=== PATIENT | female | born 1965 | race Caucasian/White ===

== ENCOUNTER → 2022-02-27 | Outpatient (CLI) | payer OTHER ==
--- NOTE | 2022-02-27 22:28 | BD ---
EXAMINATION TYPE: Axial Bone Density DATE OF EXAM: 02/27/2022 COMPARISON: Prior DEXA bone scan 2014 CLINICAL HISTORY: 56 years year old Female. ICD-10 CODE: Z13.820 OSTEOPOROSIS Height: 65 Weight: 222.5 FRAX RISK QUESTIONS: Alcohol (3 or more units per day): NO Family History (Parent hip fracture): NO Glucocorticoids (More than 3mos): NO History of Fracture in Adulthood: NO Secondary Osteoporosis: 1. Type 1 Diabetes: NO 2. Hyperthyroidism: NO 3. Menopause before 45: NO 4. Malnutrition: NO 5. Chronic liver disease: NO Rheumatoid Arthritis: NO Current Tobacco Use: NO RISK FACTORS HISTORY OF: Hip Fracture (Right/Left): NO Spine Fracture: NO History of Wrist Fracture: NO Surgery to Spine/Hip(right/left)/Wrist (right/left): NO Family History of Osteoporosis: MOM Active: NO Diet low in dairy products/other sources of calcium: YES Postmenopausal woman: YES Take estrogen and/or progesterone medications: NO Lost more than 2 inches in height since high school: NO Frequent falls: NO Poor Health: NO Hyperparathyroidism: NO Adrenal Insufficiency: NO MEDICATIONS: Prednisone or other steroids: NO Thyroid Medications: NO Osteoporosis Medications: NO Additional Medications: MULTI VIT. , FISH OIL, Additional History: EXAM MEASUREMENTS: Bone mineral densitometry was performed using the [employer] System. Bone mineral density as measured about the Lumbar spine is: ----- L1-L4(G/cm2): 1.584 T Score Values are as follows: ----- L1: 2.0 ----- L2: 2.2 ----- L3: 4.5 ----- L4: 4.8 ----- L1-L4: 3.4 Bone mineral density has: DECREASED -0.2% since study of: 09/25/2015 Bone mineral density about the R hip (g/cm2): 1.003 Bone mineral density about the L hip (g/cm2): 1.035 T Score values are as follows: -----R Neck: -0.3 -----L Neck: 0.0 -----R Total: 0.7 -----L Total: 1.4 Bone mineral density has: DECREASED 5.3% since study of: 09/25/2015 FRAX%s: The graph provided illustrates a 5.3% chance for a major osteoporotic fx and a 0.1% chance fo r the hips probability for fx in 10 years time. IMPRESSION: Normal (Values between +1 and -1 indicate normal bone mass). Consider repeating this study in 5 year s or sooner if there is some new clinical indication. NOTE: T-SCORE=SD OF THE YOUNG ADULT MEAN.
--- NOTE | 2022-02-28 11:54 | MM ---
Reason for exam: screening (asymptomatic). Last mammogram was performed 6 years and 5 months ago. History: Patient is postmenopausal. Family history of breast cancer in paternal aunt. Physical Findings: A clinical breast exam by your physician is recommended on an annual basis and results should be correlated with mammographic findings. MG 3D Screening Mammo W/Cad Bilateral CC and MLO view(s) were taken. XCCL view(s) were taken of the right breast. Prior study comparison: September 25, 2015, bilateral MG screening mammo w CAD. The breast tissue is heterogeneously dense. This may lower the sensitivity of mammography. There are benign appearing round, vascular calcifications bilaterally. There is chronic nodularity in the left breast with new round calcifications. There is no discrete abnormality. ASSESSMENT: Benign, BI-RAD 2 RECOMMENDATION: Routine screening mammogram of both breasts in 1 year.
== END | disposition home or self-care (01) ==
LOC: RADMAMWWP 11:48
PROVIDERS: ATTEND Family Medicine
DX: Z12.31 Encounter for screening mammogram for malignant neoplasm of breast (principal); Z13.820 Encounter for screening for osteoporosis; Z78.0 Asymptomatic menopausal state; Z80.3 Family history of malignant neoplasm of breast
CPT/HCPCS: 77063; 77067; 77080

== ENCOUNTER → 2023-11-13 | Outpatient (CLI) | payer OTHER ==
--- NOTE | 2023-11-17 09:39 | MM ---
Reason for Exam: Screening (asymptomatic). Last mammogram was performed 1 year(s) and 9 month(s) ago. Patient History: Menarche at age 12. First Full-Term at age 22. Postmenopausal. Patient has history of breast feeding. Paternal aunt had breast cancer. Mother had breast cancer, age 80. Risk Values: Allison 5 year model risk: 2.7%. NCI Lifetime model risk: 13.9%. Prior Study Comparison: 03/22/2013 Left Diagnostic Mammogram, [facility]. 09/25/2015 Bilateral Screening Mammogram, [facility]. 02/27/2022 Bilateral Screening Mammogram, [facility]. Tissue Density: The breast tissue is heterogeneously dense. This may lower the sensitivity of mammography. Findings: Analyzed By CAD. There is no suspicious group of microcalcifications or new suspicious mass. Benign-appearing calcifications bilaterally. Overall Assessment: Benign, BI-RAD 2 Management: Screening Mammogram of both breasts in [address] [facility] will attempt to contact patient to return for supplemental views and ultrasound if indicated. Patient should continue monthly self-breast exams. A clinical breast exam by your physician is recommended on an annual basis. This exam should not preclude additional follow-up of suspicious palpable abnormalities. Note on Allison scores and lifetime risk: 1. A Allison score greater than 3% is considered moderate risk. If this is the case, consider specialist referral to assess eligibility for a risk reducing agent. 2. If overall lifetime risk for the development of breast cancer is 20% or higher, the patient may qualify for future screening with alternating mammogram and breast MRI. Electronically signed and approved by: Percy Miguel DO
== END | disposition home or self-care (01) ==
LOC: RADMAMWWP 14:17
PROVIDERS: ATTEND Family Medicine
DX: Z12.31 Encounter for screening mammogram for malignant neoplasm of breast (principal); Z78.0 Asymptomatic menopausal state; Z80.3 Family history of malignant neoplasm of breast
CPT/HCPCS: 77067

== ENCOUNTER → 2025-01-19 | Outpatient (CLI) | payer OTHER ==
--- NOTE | 2025-01-20 07:47 | CA ---
Exercise Stress Test Report Name: Dunia Gomes Exam Date: 01/19/2025 11:45 Exam Location: [facility] Ht (in): 66 Wt (lb): 222 BSA: 2.09 Ordering Phys: Kenia Don DO Referring Phys: Sally Cabello Technologist: STEPHANIE QUAN Age: 59 Gender: F : 1965 Procedure CPT: Indications: R07.89 other chest pain ICD-10 Codes: Patient History: CP, HIGH CHOL, NUMBNESS NECK L ARM, FAMILY HX. Medications: MELOXACAM,,,, LORATADINE,,, Meds past 24 hrs: Pretest Chest Pain: STRESS TEST Reymundo Protocol Exercise Duration (min:sec): 07:[address] Depressions (mm): Angina Score: Lemus Score: Resting HR (bpm): 98 Peak HR (bpm): 145 Resting BP (mmHg): 120 / 94 Peak BP (mmHg): 172 / 69 MPHR: 160 Target HR: 136 % MPHR: 91 METS: 9.8 Total Dose: Peak Dose: Atropine: Double Product: 41033 BP Response: Stress Termination: TARGET HR REACHED/MAX EXERTION Stress Symptoms: NO SYMPTOMS Stress Summary: ECG ANALYSIS Resting ECG: Stress ECG: CONCLUSIONS Baseline EKG revealed normal sinus rhythm without significant ST-T changes. Patient walked for 7 minutes 34 seconds and achieved a maximal heart rate of 145 bpm which is more than 85% of predicted maximal. There was no angina. There was no arrhythmia and there were no ST segment changes to indicate ischemia. This is a negative stress test by EKG criteria with fair exercise capacity Dr. Ina Cary MD (Electronically Signed) Final Date: 20 January 2025 07:46
== END | disposition home or self-care (01) ==
LOC: RADNMMAIN 11:25
PROVIDERS: ATTEND Family Medicine
DX: R07.89 Other chest pain (principal)
CPT/HCPCS: 93017

== ENCOUNTER → 2025-03-02 | Outpatient (CLI) | payer OTHER ==
--- NOTE | 2025-03-02 15:00 | MM ---
Reason for Exam: Screening (asymptomatic). Last mammogram was performed 1 year(s) and 4 month(s) ago. Patient History: Menarche at age 12. First Full-Term at age 22. Postmenopausal. Patient has history of breast feeding. Paternal aunt had breast cancer, age 35. Mother had breast cancer, age 80. Risk Values: Allison 5 year model risk: 2.7%. NCI Lifetime model risk: 13.6%. Prior Study Comparison: 09/25/2015 Bilateral Screening Mammogram, [facility]. 02/27/2022 Bilateral Screening Mammogram, [facility]. 11/13/2023 Bilateral MG screening mammo w CAD, [facility]. Tissue Density: The breasts are heterogeneously dense, which may obscure small masses. Findings: Analyzed By CAD. Benign appearing vascular calculation bilaterally is redemonstrated. There are a few benign-appearing round calcifications bilaterally redemonstrated. Stable 7 mm circumscribed oval mass in the left breast upper outer quadrant with tiny benign appearing round Calcifications. There is no suspicious new group of microcalcifications or new suspicious mass in either breast. Overall Assessment: Benign, BI-RAD 2 Management: Screening Mammogram of both breasts in 1 year. . Patient should continue monthly self-breast exams. A clinical breast exam by your physician is recommended on an annual basis. This exam should not preclude additional follow-up of suspicious palpable abnormalities. Note on Allison scores and lifetime risk: 1. A Allison score greater than 3% is considered moderate risk. If this is the case, consider specialist referral to assess eligibility for a risk reducing agent. 2. If overall lifetime risk for the development of breast cancer is 20% or higher, the patient may qualify for future screening with alternating mammogram and breast MRI. [facility], , 03/02/2025 2:57 PM. Electronically signed and approved by: Graham Stern M.D.
== END | disposition home or self-care (01) ==
LOC: RADMAMWWP 14:19
PROVIDERS: ATTEND Family Medicine
DX: Z12.31 Encounter for screening mammogram for malignant neoplasm of breast (principal); R92.333 Mammographic heterogeneous density, bilateral breasts; Z78.0 Asymptomatic menopausal state; Z80.3 Family history of malignant neoplasm of breast
CPT/HCPCS: 77067